=== PATIENT | male | born 1995 | race Caucasian/White ===

== ENCOUNTER 2016-07-19 02:48 | Emergency (ER) | payer OTHER ==
[2016-07-19 02:57] VITALS: BP 121/74; PULSE 90; RESP 16; TEMP 97.9; O2SAT 99
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
== END 2016-07-19 03:50 | disposition home or self-care (01) ==
PROC: 0HQ1XZZ Repair Face Skin, External Approach (ICD-10-PCS; principal; 2016-07-19)
DX: S01.112A Laceration without foreign body of left eyelid and periocular area, initial encounter (principal); W22.8XXA Striking against or struck by other objects, initial encounter; Y92.009 Unspecified place in unspecified non-institutional (private) residence as the place of occurrence of the external cause